=== PATIENT | female | born 1985 | race Caucasian/White ===

== ENCOUNTER 2018-01-29 18:40 | Inpatient (IN) | payer MEDICAID ==
[2018-01-29 19:42] LABS: ABS Basophils 0.1 10^3/ul (0-0.2); ABS Eosinophils 0.1 10^3/ul (0-0.6); ABS Lymphocytes 2.5 10^3/ul (1.0-4.8); ABS Monocytes 0.8 10^3/ul (0-0.8); ABS Neutrophils 5.5 10^3/ul (1.5-7.7); ABS Nucleated RBC 0 10^3/ul; Eosinophil % 1.1 %; Hematocrit 40 % (35-47); Hemoglobin 13.4 g/dl (12.0-16.0); Lymphocyte % 27.7 %; Mean Corpuscular HGB Conc 33 g/dl (31-36); Mean Corpuscular Hemoglobin 29 pg (27-31); Mean Corpuscular Volume 88 fL (80-97); Mean Platelet Volume 7.4 fL (7.4-10.4); Nucleated Red Blood Cells % 0; Platelet Count 280 10^3/ul (150-450); Red Blood Count 4.58 10^6/ul (4.00-5.40); Red Cell Distribution Width 13 % (10.5-15)
[2018-01-29 19:53] LABS: EGFR Non-African American 83.1 (>60)
[2018-01-29] MEDS ORDERED: Mouth Piece, Nicotine* 1 EACH CARTRIDGE INH ONE (20:00)
[2018-01-29 20:19] LABS: Urine Appearance Cloudy; Urine Blood Negative (Negative); Urine Color Yellow; Urine Ketones 1+ (Negative); Urine Protein Negative (Negative); Urine Specific Gravity 1.019 (1.010-1.030); Urine Urobilinogen Negative (Negative)
--- NOTE | 2018-01-29 20:28 | ED ---
Medical Screening - HPI Summary HPI Summary: Patient sent by [facility] to ED with History of bipolar 2 compliant with meds, states rapid cycling episodes of kenya in anger with intermittent thoughts of SI x weeks. Taking lamotrigine 400 mg daily 2 years. Denies change in meds or dosage. Denies increase in use of alcohol, recreational drugs , but states greater impulse torward using them. Denies any fever, cough, sore throat, CP, SOB, N/V/V abdominal pain, change in hearing, change in BM. Medical history is bipolar 2. Denies HI. - History of Current Complaint Chief Complaint: EDMentalHealth Stated Complaint: MHE Time Seen by Provider: 01/29/18 18:59 Onset/Duration: Started Weeks Ago Severity: moderate Associated Signs and Symptoms: Other - Hyperverbal PMH/Surg Hx/FS Hx/Imm Hx Endocrine/Hematology History: Denies: Hx Anticoagulant Therapy Cardiovascular History: Denies: Hx Cardiac Arrest History: Denies: Hx Dialysis Neurological History: Denies: Hx CVA Psychiatric History: Denies: Hx Autism Infectious Disease History: No Infectious Disease History: Denies: Traveled Outside the [place] in Last 30 Days - Family History Known Family History: Positive: Unknown - Social History Alcohol Use: Occasionally Substance Use Type: Reports: Marijuana Smoking Status (MU): Heavy Every Day Tobacco Smoker Review of Systems Constitutional: Negative Eyes: Negative ENT: Negative Cardiovascular: Negative Respiratory: Negative Gastrointestinal: Negative Genitourinary: Negative Musculoskeletal: Negative Skin: Negative Neurological: Negative Positive: Other - hyperverbal, very energetic. All Other Systems Reviewed And Are Negative: Yes Physical Exam - Summary Physical Exam Summary: Hyperverbal, energetic presentation. However verbally coherent. Answers appropriate. Patient seems self-aware and perceptive about her condition. Triage Information Reviewed: Yes Vital Signs On Initial Exam: Initial Vitals Temp Pulse Resp BP Pulse Ox 98.1 F 72 16 126/70 97 01/29/18 18:40 01/29/18 18:40 01/29/18 18:40 01/29/18 18:40 01/29/18 18:40 Vital Signs Reviewed: Yes Appearance: Positive: Well-Appearing Diagnostics - Vital Signs Vital Signs Temp Pulse Resp BP Pulse Ox 01/29/18 18:40 98.1 F 72 16 126/70 97 - Laboratory Lab Results: Lab Results 01/29/18 01/29/1801/29/18 Range/Units 19:04 19:26 19:26 WBC 9.0 (3.5-10.8) 10^3/ul RBC 4.58 (4.00-5.40) 10^6/ul Hgb 13.4 (12.0-16.0) g/dl Hct 40 (35-47) % MCV 88 (80-97) fL MCH 29 (27-31) pg MCHC 33 (31-36) g/dl RDW 13 (10.5-15) % Plt Count 280 (150-450) 10^3/ul MPV 7.4 (7.4-10.4) fL Neut % (Auto) 61.1 % Lymph % (Auto) 27.7 % [place] % (Auto) 9.2 % Eos % (Auto) 1.1 % Baso % (Auto) 0.9 % Absolute Neuts (auto) 5.5 (1.5-7.7) 10^3/ul Absolute Lymphs (auto) 2.5 (1.0-4.8) 10^3/ul Absolute Monos (auto) 0.8 (0-0.8) 10^3/ul Absolute Eos (auto) 0.1 (0-0.6) 10^3/ul Absolute Basos (auto) 0.1 (0-0.2) 10^3/ul Absolute Nucleated RBC 0 10^3/ul Nucleated RBC % 0 Sodium 137 (135-145) mmol/L Potassium 4.0 (3.5-5.0) mmol/L Chloride 101 (101-111) mmol/L Carbon Dioxide 28 (22-32) mmol/L Anion Gap 8 (2-11) mmol/L BUN 10 (6-24) mg/dL Creatinine 0.80 (0.51-0.95) mg/dL Est GFR ( Amer) 100.6 (>60) Est GFR (Non-Af Amer) 83.1 (>60) BUN/Creatinine Ratio 12.5 (8-20) Glucose 91 (70-100) mg/dL Calcium 9.9 (8.6-10.3) mg/dL Total Bilirubin 0.80 (0.2-1.0) mg/dL AST 17 (13-39) U/L ALT 14 (7-52) U/L Alkaline Phosphatase 58 (34-104) U/L Total Protein 7.2 (6.4-8.9) g/dL Albumin 4.6 (3.2-5.2) g/dL Globulin 2.6 (2-4) g/dL Albumin/Globulin Ratio 1.8 (1-3) TSH Pending Urine Color Yellow Urine Appearance Cloudy Urine pH 6.0 (5-9) Ur Specific [place] 1.019 (1.010-1.030) Urine Protein Negative (Negative) Urine Ketones 1+ A (Negative) Urine Blood Negative (Negative) Urine Nitrate Negative (Negative) Urine Bilirubin Negative (Negative) Urine Urobilinogen Negative (Negative) Ur Leukocyte Esterase Negative (Negative) Urine Glucose Negative (Negative) Salicylates Pending Acetaminophen Pending Serum Alcohol Pending Result Diagrams: 01/29/18 19:26 01/29/18 19:26 Lab Statement: Any lab studies that have been ordered have been reviewed, and results considered in the medical decision making process. Course/Dx - Course Course Of Treatment: Patient sent by [facility] to ED with History of bipolar 2 compliant with meds, states rapid cycling episodes of kenya in anger with intermittent thoughts of SI x weeks. Taking lamotrigine 400 mg daily 2 years. Denies change in meds or dosage. Denies increase in use of alcohol, recreational drugs, but states greater impulse torward using them. Denies any fever, cough, sore throat, CP, SOB, N/V/V abdominal pain, change in hearing, change in BM. Medical history is bipolar 2. Denies HI. Physical exam: Hyperverbal, energetic presentation. However verbally coherent. Answers appropriate. Patient seems self-aware and perceptive about her condition. Vital signs within normal limits. Labs unremarkable. Patient has no complaints physically. Pending evaluation by mental health. - Diagnoses Provider Diagnoses: [place] Discharge - Sign-Out/Discharge Documenting (check all that apply): Sign-Out Patient Signing out patient TO: Nick Acosta - Discharge Plan Condition: Stable - Billing Disposition and Condition Condition: STABLE
[2018-01-29] MEDS ORDERED: Ibuprofen TAB* 600 MG PO ONE (21:50)
[2018-01-30] MEDS: Nicotine Inhaler* 10 MG AMP INH PRN ×4 (08:45→21:19)
[2018-01-30] MEDS: Divalproex DR TAB(*) 500 MG PO SCH (21:19)
--- NOTE | 2018-01-31 02:24 | HP ---
HISTORY AND PHYSICAL: DATE OF ADMISSION: 01/29/18 PROVIDER: Shannen Meyer NP in Psychiatry. SUPERVISING PHYSICIAN: Tony Harvey MD.* (DICTATED BY SHANNEN MEYER NP ) JUSTIFICATION FOR ADMISSION: The patient is in need of 24-hour supervision and care secondary to gross disorganization. CHIEF COMPLAINT: I was Yu acted multiple times. I get aggressive now, but on cocaine I never did that. HISTORY OF PRESENT ILLNESS: The patient is a 32-year-old partnered white woman from [place] who has a history of bipolar II disorder who arrives here on a voluntary status after going to her job at [employer] and talking to a nurse practitioner there who sent her up here because she is speaking at an extremely rapid rate, talking about some kind of nonsensical things and being somewhat inappropriate. Estrellita's story is difficult to understand as she jumps from topic to topic and is unable to make it clear what is actually relevant information. She begins her story by saying as a child her mother gave up custody when she was 9 and then retained her and stated that she was inpatient much of her childhood that she weighed 200 pounds as a child that her mother wanted her to be autistic and a variety of other seemingly inconsequential details. She states she got to [place] 3 months ago to be with "her man". She has been using drugs for 3 years. She states that she only uses them for experimentation and that she does not use it very often. She states that cocaine does not make her aggressive but being manic like this does. She further comments that she has never been manic before, not like this and that she thinks that her diagnosis of bipolar II may have crept into the realm of bipolar I instead. She is extremely distractible. She cannot stay on topic. She makes some statements that are oddly specific and grandiose in a way, flight of ideas is present. She is more active doing many things. She is incredibly talkative. She states she is sleeping alright but I am not sure if that is actually the case. PAST PSYCHIATRIC HISTORY: She states she spent much of her childhood in hospitals. She believes her mother had [place] by proxy. She grew up in [place]. She is not currently in treatment here. She feels like Maxine stopped working after a number of years of taking it and that has what has caused this particular jose a rocketing bump in her presentation. Previously, she states she has taken Abilify which was awful. She gained 100 pounds in 4 months according to her. She states she took lithium 5500 mg and that did not help her because she "metabolizes it so rapidly". When I informed her that that was an impossibility, she shrugged her shoulders and that was the end of that conversation. She suggests that she would like to try Symbyax. I deter her from that choice as it causes so much weight gain. She does agree to a mood stabilizer. She will not agree to lithium. She agrees to Depakote 500 b.i.d. We did not get to the weight gain issue and we have not discussed that yet. PAST MEDICAL HISTORY: Impossible to obtain at this time. HISTORY OF SUBSTANCE USE: She states she has been experimenting with drugs for the past 3 years. It is unclear what drugs she has been experimenting with, but she was advised that this is not useful to a person who has a bipolar brain. It was not possible to obtain a family history, but Kishore Denise may have done that. SUBSTANCE ABUSE: She does smoke cigarettes. She does drink alcohol and she has experimented with drugs as I stated before. SOCIAL HISTORY: I am going to leave to Kishore. 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 She is a [employer] stack and she currently works at [employer]. She does say that she "was at university," she does not say which one. REVIEW OF SYMPTOMS: The patient reports feeling very alert. She denies shortness of breath, heat or cold intolerance, chest pain or abdominal pain. She denies neurological symptoms. She denies fevers or changes in weight. PHYSICAL EXAMINATION VITAL SIGNS: On 01/30/18 at 0409 in the morning, temperature was 98.7, pulse 80 , respiratory rate 16, oxygen sat 97, blood pressure 124/73. For further exam data, please see the emergency department records, which reveals an exam within normal limits. LABORATORY DATA: Hematology, chemistry and urine are all within normal limits with the exception that her urine contained ketones. Toxicology screen indicates that she is positive for cocaine and cannabinoids. MENTAL STATUS EXAMINATION: This is a slim, attractive woman wearing large cat eye glasses. She is hyperverbal. She is a little excitable but she is cooperative. Her speech volume is somewhat loud. Her tone is friendly. She is agitated. She has a full range of affect. Her thought processes are racing. Her thought content appears to be free of delusions. She is not homicidal. She does report being impulsive and having occasional suicidal thoughts. She is not having hallucinations, although she reports in the past she has had them. Her insight is fair. Her judgement is poor. She is alert and oriented x3. DIAGNOSES: [place] I: Bipolar I disorder. [place] II: Deferred. [place] III: None. IMPRESSION: Estrellita is a 32-year-old partnered white woman who comes to the hospital after an nurse practitioner at her workplace suggests she needs to get help and additional care following aggressive behavior, impulses to hurt herself and others, as well as confused behavior where she apologizes for what has just transpired. PLAN: The patient is admitted to the Adult Behavioral Health Unit and placed on q. 15 minute checks for her own safety. The patient is encouraged to participate in supportive milieu, individual and group therapies. ESTIMATED LENGTH OF STAY: Five to seven days. When Estrellita's shaw is reduced, we may obtain an MMPI for diagnostic clarification. We will be titrating Depakote among other medications, ensure efficacy and monitor for mood and thought content. DISCHARGE PLANNING: Will include family involvement and outpatient providers. SHANNEN MEYER, [place] [id number]/CPS #: [id number] [place]
[2018-01-31] MEDS ORDERED: Al Hydrox/Mg Hydrox/Simet LIQ* 30 ML UDC PO PRN (02:47)
[2018-01-31] MEDS ORDERED: chlorproMAZINE TAB* 50 MG PO PRN (02:55)
[2018-01-31] MEDS: Divalproex DR TAB(*) 500 MG PO SCH ×2 (09:04→20:02)
[2018-01-31] MEDS: Vitamin THERAPEUTIC TAB PO SCH (09:04)
[2018-01-31] MEDS: Nicotine Inhaler* 10 MG AMP INH PRN ×2 (10:18→18:55)
--- NOTE | 2018-01-31 10:54 | PN ---
Subjective - Subjective Date of Service: 01/31/18 Service Type: 72301 Hosp care 15 min low complexity Subjective: Bandar is doing well. She is somewhat less hyperverbal than she was yesterday but remains distractible and goes on tangents. She does eventually correct herself to say that she is growing aware that she can't stay on topic. She spends quite some time discussing her adventist views of "the Universe" and the spirit she is most familiar with. She has created an altar in her room which she has used creatively to engage in the yazidi she requires. Objective - Appearance Appearance: Healthy Appearing Dysmorphic Features: No Hygiene: Normal Grooming: Well Kept - Behavior Psychomotor Activities: Normal Exhibits Abnormal Movement: No - Attitude and Relatedness Attitude and Relatedness: Well Related Eye Contact: Good - Speech Quality: Pressured Latencies: Normal Quantity: Copious - Mood Patient's Decription of Mood: "Great" - Affect Observed Affect: Expansive Affect Consistent with: Euphoria - Thought Process Patient's Thought Process: Coherent, Tangential Thought Content: No Passive Wish, No Suicidal Planning, No Homicidal Ideation, No Paranoid Ideation - Sensorium Experiencing Hallucinations: No, Sensorium is Clear Type of Hallucinations: Visual: No, Auditory: No, Command: No - Level of Consciousness Level of Consciousness: Agitated Orientation: Yes Intact, Yes Orientated to Time, Yes Orientated to Place, Yes Orientated to Person - Impulse Control Impulse Control: Impaired - Insight and Judgement Insight and Judgement: Fair - Group Participation Particating in Group Activities: Yes - Medication Management Medication Management Adherence: Yes Assessment - Assessment Merits Inpatient Hospitalization: For Immediate Safety Inpatient DSM-V Dx: F31.13 Clinical Impression: Mary is a 32 year old woman who comes to the hospital on the advice of an [employer]OR [employer] coworker. Mary is manic and, although pleasant and interesting, is not in possession of good insight, judgment, or impulse control. She is very energetic and has many creative ideas. Plan - Plan Treatment Plan: Name: BANDAR POLANCO Birthdate: 1985 [id number] Continued Medication Management: Start Medication Medications: Current Medications Acetaminophen (Tylenol Tab*) 650 mg PO Q4H PRN PRN Reason: PAIN/FEVER Al Hydrox/Mg Hydrox/Simethicone (Maalox Plus*) 30 ml PO Q4H PRN PRN Reason: INDIGESTION Chlorpromazine HCl (Thorazine Tab*) 50 mg PO Q6H PRN PRN Reason: AGITATION Divalproex Sodium (Depakote Dr Tab(*)) 500 mg PO BID [facility] Last Admin: 01/31/18 09:04 Dose: 500 mg Multivitamins (Theragran Tab*) 1 tab PO DAILY [facility] Last Admin: 01/31/18 09:04 Dose: 1 tab Nicotine (Nicotine Inhaler*) 10 mg INH Q2H PRN PRN Reason: CRAVING Last Admin: 01/31/18 10:18 Dose: 10 mg Nicotine Polacrilex (Nicotine Gum*) 2 mg PO Q2H PRN PRN Reason: CRAVING - Discharge Plan Discharge Plan: Outpatient Follow Up Outpatient Program: [facility] Additional Comments: Bandar will benefit from starting a mood stabilizer and she has agreed to Depakote. We are starting with 500 mg BID. She will in the future be referred to [facility] for therapy and medication management. We may also consider drug treatment, as she has been "experimenting" for several years and that is not contributing to her stability.
--- NOTE | 2018-01-31 15:52 | PN ---
Subjective - Subjective Date of Service: 01/30/18 Service Type: 07910 Group Psychotherapy Subjective: Bandar was active in the group, sharing her own experiences and validating others'. She participated well, was perhaps over enthusiastic at times, but generally maintained appropriate boundaries. 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 Mary is manic and, although pleasant and interesting, is not in possession of good insight, judgment, or impulse control. She is very energetic and has many creative ideas. Plan - Plan Treatment Plan: Name: BANDAR POLANCO Birthdate: 1985 [id number] Medications: Current Medications Acetaminophen (Tylenol Tab*) 650 mg PO Q4H PRN PRN Reason: PAIN/FEVER Al Hydrox/Mg Hydrox/Simethicone (Maalox Plus*) 30 ml PO Q4H PRN PRN Reason: INDIGESTION Chlorpromazine HCl (Thorazine Tab*) 50 mg PO Q6H PRN PRN Reason: AGITATION Divalproex Sodium (Depakote Dr Tab(*)) 500 mg PO BID [facility] Last Admin: 01/31/18 09:04 Dose: 500 mg Multivitamins (Theragran Tab*) 1 tab PO DAILY [facility] Last Admin: 01/31/18 09:04 Dose: 1 tab Nicotine (Nicotine Inhaler*) 10 mg INH Q2H PRN PRN Reason: CRAVING Last Admin: 01/31/18 10:18 Dose: 10 mg Nicotine Polacrilex (Nicotine Gum*) 2 mg PO Q2H PRN PRN Reason: CRAVING - Discharge Plan Additional Comments: Bandar will benefit from starting a mood stabilizer and she has agreed to Depakote. We are starting with 500 mg BID. She will in the future be referred to [facility] for therapy and medication management. We may also consider drug treatment, as she has been "experimenting" for several years and that is not contributing to her stability.
[2018-02-01] MEDS: Acetaminophen TAB* 325 MG PO PRN (07:58)
[2018-02-01] MEDS: Divalproex DR TAB(*) 500 MG PO SCH ×2 (07:59→21:23)
[2018-02-01] MEDS: Nicotine Inhaler* 10 MG AMP INH PRN ×2 (07:59→21:23)
[2018-02-01] MEDS: Vitamin THERAPEUTIC TAB PO SCH (07:59)
--- NOTE | 2018-02-01 12:40 | PN ---
Subjective - Subjective Date of Service: 02/01/18 Service Type: [id number] Hosp care 25 min moderate complexity Subjective: Bandar is still hyperverbal, but she is noticing it more and thus editing herself more. She is suffering with otitis media and has been treated with amoxicillin 500 mg QID x 7 days. She may use IBU or APAP for pain relief. April created "a community table" in the milieu so that about 12 people could sit together. She also allowed that others might not want to join, so she left other tables alone. This is consistent with her desire to not force things on people. Assessment - Assessment Inpatient DSM-V Dx: F31.13 Clinical Impression: Mary is a 32 year old woman who comes to the hospital on the advice of an [employer] coworker. Mary is manic and, although pleasant and interesting, is not in possession of good insight, judgment, or impulse control. She is very energetic and has many creative ideas. Plan - Plan Treatment Plan: Name: BANDAR POLANCO Birthdate: 1985 [id number] Medications: Current Medications Acetaminophen (Tylenol Tab*) 650 mg PO Q4H PRN PRN Reason: PAIN/FEVER Last Admin: 02/01/18 07:58 Dose: 650 mg Al Hydrox/Mg Hydrox/Simethicone (Maalox Plus*) 30 ml PO Q4H PRN PRN Reason: INDIGESTION Amoxicillin (Amoxicillin Po (*)) 500 mg PO 0900,1300,1700,2100 [facility] Chlorpromazine HCl (Thorazine Tab*) 50 mg PO Q6H PRN PRN Reason: AGITATION Divalproex Sodium (Depakote Dr Tab(*)) 500 mg PO BID [facility] Last Admin: 02/01/18 07:59 Dose: 500 mg Ibuprofen (Motrin Tab*) 400 mg PO Q6H PRN PRN Reason: PAIN Multivitamins (Theragran Tab*) 1 tab PO DAILY [facility] Last Admin: 02/01/18 07:59 Dose: 1 tab Nicotine (Nicotine Inhaler*) 10 mg INH Q2H PRN PRN Reason: CRAVING Last Admin: 02/01/18 07:59 Dose: 10 mg Nicotine Polacrilex (Nicotine Gum*) 2 mg PO Q2H PRN PRN Reason: CRAVING - Discharge Plan Additional Comments: Bandar will benefit from starting a mood stabilizer and she has agreed to Depakote. We are starting with 500 mg BID. She will in the future be referred to [facility] for therapy and medication management. We may also consider drug treatment, as she has been "experimenting" for several years and that is not contributing to her stability.
[2018-02-01] MEDS: Amoxicillin PO (*) 500 MG CAP PO SCH ×3 (12:51→21:23)
[2018-02-02] MEDS: Vitamin THERAPEUTIC TAB PO SCH (08:29)
[2018-02-02] MEDS: Amoxicillin PO (*) 500 MG CAP PO SCH ×4 (08:29→20:48)
[2018-02-02] MEDS: Divalproex DR TAB(*) 500 MG PO SCH ×2 (08:29→20:48)
[2018-02-02] MEDS: Nicotine GUM* 2 MG PO PRN (08:30)
[2018-02-02] MEDS: Nicotine Inhaler* 10 MG AMP INH PRN ×2 (08:30→13:54)
[2018-02-02] MEDS: Acetaminophen TAB* 325 MG PO PRN ×3 (08:31→17:17)
[2018-02-02] MEDS: Ibuprofen TAB* 400 MG PO PRN (19:43)
[2018-02-03] MEDS: Ibuprofen TAB* 400 MG PO PRN ×3 (02:20→13:04)
[2018-02-03] MEDS: Amoxicillin PO (*) 500 MG CAP PO SCH ×3 (08:11→16:30)
[2018-02-03] MEDS: Vitamin THERAPEUTIC TAB PO SCH (08:11)
[2018-02-03] MEDS: Nicotine Inhaler* 10 MG AMP INH PRN ×3 (08:12→18:05)
[2018-02-03] MEDS: Divalproex DR TAB(*) 500 MG PO SCH ×2 (08:12→21:28)
[2018-02-03] MEDS: Nicotine GUM* 2 MG PO PRN (08:13)
--- NOTE | 2018-02-03 16:45 | PN ---
Subjective - Subjective Date of Service: 02/03/18 Subjective: Found Bandar in the milieu, conversing with peers and playing Bingo. She was agreeable to an interview. She is reporting that she is improving on the Depakote and has not complaints of any side effects. She wants to relay to her provider that 1) She continues to have mild mood swings and that she feels that she may need an increase in the Depakote, she complains of a two hard spots superior and anterior to Left ear. Reports that it is very painful and this is coupled with a complaint about a staff member who took her temperature and was "rough" when he did so. She wants to report that she felt diminished by her complaints that he applied too much pressure when he took her temperature. She reports sleeping well, no suicidal ideation and that she is feeling "pretty good " after a visit today with her boyfriend. Objective - Appearance Appearance: Healthy Appearing Dysmorphic Features: Yes Hygiene: Normal Grooming: Well Kept - Behavior Psychomotor Activities: Normal Exhibits Abnormal Movement: No - Attitude and Relatedness Attitude and Relatedness: Appropriate - Speech Quality: Unpressured Latencies: Long Quantity: Copious - Mood Patient's Decription of Mood: "Good" - Affect Observed Affect: Euphoric - Thought Process Patient's Thought Process: Coherent Thought Content: No Passive Wish, No Suicidal Planning, No Homicidal Ideation, No Paranoid Ideation - Sensorium Experiencing Hallucinations: No, Sensorium is Clear Type of Hallucinations: Visual: No, Auditory: No, Command: No - Level of Consciousness Level of Consciousness: Alert Orientation: Yes Intact, Yes Orientated to Time, Yes Orientated to Place, Yes Orientated to Person - Impulse Control Impulse Control: Intact - Insight and Judgement Insight and Judgement: Fair - Group Participation Particating in Group Activities: Yes Assessment - Assessment Inpatient DSM-V Dx: F31.13 Clinical Impression: Bandar is reporting an improvement on Depakote. States that her speech has improved, reports that peers have told her that she seems to be improving. She complains of ear pain from an infection and including two hard spots below and behind her left ear. She is attending groups, conversant today mild to moderately hyperverbal during interview. She had a euthymic mood and affect, is hoping to be discharged with mental health services stating this is why she moved here from [place] because [facility] has better health coverage. Plan - Plan Treatment Plan: Name: BANDAR POLANCO Birthdate: 1985 [id number] Medications: Current Medications Acetaminophen (Tylenol Tab*) 650 mg PO Q4H PRN PRN Reason: PAIN/FEVER Last Admin: 02/02/18 17:17 Dose: 650 mg Al Hydrox/Mg Hydrox/Simethicone (Maalox Plus*) 30 ml PO Q4H PRN PRN Reason: INDIGESTION Amoxicillin (Amoxicillin Po (*)) 500 mg PO 0900,1300,1700,2100 [facility] Last Admin: 02/03/18 13:04 Dose: 500 mg Chlorpromazine HCl (Thorazine Tab*) 50 mg PO Q6H PRN PRN Reason: AGITATION Divalproex Sodium (Depakote Dr Tab(*)) 500 mg PO BID [facility] Last Admin: 02/03/18 08:12 Dose: 500 mg Ibuprofen (Motrin Tab*) 400 mg PO Q6H PRN PRN Reason: PAIN Last Admin: 02/03/18 13:04 Dose: 400 mg Multivitamins (Theragran Tab*) 1 tab PO DAILY [facility] Last Admin: 02/03/18 08:11 Dose: 1 tab Nicotine (Nicotine Inhaler*) 10 mg INH Q2H PRN PRN Reason: CRAVING Last Admin: 02/03/18 13:04 Dose: 10 mg Nicotine Polacrilex (Nicotine Gum*) 2 mg PO Q2H PRN PRN Reason: CRAVING Last Admin: 02/03/18 08:13 Dose: 2 mg
[2018-02-03 20:25] LABS: ABS Basophils 0 10^3/ul (0-0.2); ABS Eosinophils 0.1 10^3/ul (0-0.6); ABS Lymphocytes 2.1 10^3/ul (1.0-4.8); ABS Monocytes 1.4 10^3/ul (0-0.8); ABS Neutrophils 7.4 10^3/ul (1.5-7.7); ABS Nucleated RBC 0 10^3/ul; Eosinophil % 0.6 %; Hematocrit 41 % (35-47); Hemoglobin 13.6 g/dl (12.0-16.0); Lymphocyte % 18.7 %; Mean Corpuscular HGB Conc 33 g/dl (31-36); Mean Corpuscular Hemoglobin 29 pg (27-31); Mean Corpuscular Volume 88 fL (80-97); Mean Platelet Volume 7.9 fL (7.4-10.4); Nucleated Red Blood Cells % 0; Platelet Count 251 10^3/ul (150-450); Red Blood Count 4.69 10^6/ul (4.00-5.40); Red Cell Distribution Width 13 % (10.5-15)
[2018-02-03] MEDS: Ciproflox/Dexameth OTIC.SUSP* 7.5 ML BTL LEFT EAR SCH (21:26)
[2018-02-03] MEDS: Amoxicillin/Clavulanate TAB* 875 MG PO SCH (21:26)
[2018-02-03 22:02] LABS: INR 0.95 (0.77-1.02)
--- NOTE | 2018-02-04 05:04 | CONS ---
CC: Dr. Grisel Peters; Dr. Ramirez * CONSULTATION REPORT: DATE OF CONSULT: 02/03/18. PRIMARY CARE PROVIDER: Dr. Grisel Peters. MY ATTENDING PHYSICIAN WHILE IN THE HOSPITAL: Dr. Wilma Dumas (report dictated by Mukesh Aguilera NP). REQUESTING PHYSICIAN IN CONSULT: Dr. Ramirez. REASON FOR MEDICAL CONSULTATION: Evaluation of left ear pain. HISTORY OF PRESENT ILLNESS: Mrs. Zarate is a 32-year-old female patient who presented to the [facility] on the with a manic episode. She was noted to be aggressive. She was found by her nurse practitioner at her job to be speaking extremely rapidly, talking about nonsensical things and somewhat inappropriate. She again was noted to be very manic. She was admitted for stabilization. While here was noted that over the last several days, she has had ear pain, it was sudden in both ears but now it has localized, particularly to the left ear and also it is noted that she has been having some nodules felt in the preauricular space and postauricular space and along the neck as well. She says it felt tender and it has gotten worse after the nursing staff here had taken the patient's temperature. She said that they could get temporally and since then she has been feeling worse. She states that her hearing feels muffled in her left ear. She has not noticed any drainage or discharge as she states that it is just becoming painful and she was concerned because the swelling was not getting any better. She had been on amoxicillin, which was ordered on the . She states that it initially started helping but it has not helped her since. There was concern because the swelling just was not getting any better, so we were asked to evaluate in consult. She denies again any hearing loss, she denies having any difficulty with swallowing. No sore throat. She denied having any cough. No shortness of breath and denies having any chest pain. PAST MEDICAL HISTORY: Significant for bipolar. PAST SURGICAL HISTORY: Denies. MEDICATIONS: Current medications include: 1. Tylenol 650 mg every 4 hours as needed. 2. Maalox Plus 30 cc every 4 hours as needed. 3. Amoxicillin 1000 four times a day. 4. Thorazine 50 mg every 6 hours as needed. 5. Depakote 500 mg p.o. b.i.d. 6. Ibuprofen 400 mg every 6 hours. 7. Multivitamin 1 tablet daily. 8. Nicotine inhaler 10 mg inhaled every 2 hours as needed. 9. Nicotine gum 2 mg chew every 2 hours as needed. ALLERGIES TO MEDICATIONS: Include: 1. HALDOL. 2. CODEINE. 3. LATEX. FAMILY HISTORY: Her mother had breast cancer. Father had a history of non- Hodgkin's lymphoma. SOCIAL HISTORY: She is a smoker daily. She does have a history of cocaine use. She also does drink alcohol occasionally. Surrogate decision maker is her partner. REVIEW OF SYSTEMS: There is no documented fever. She denied having any significant weight change. There is no double vision. She denies having any ear discharge. There was no rhinorrhea. No sore throat, no thyroid enlargement. She denied having any chest pain. There is no orthopnea. There is no nocturnal dyspnea. She denies having any abdominal pain. There is no nausea. There is no vomiting, no dysuria, no frequency. There was no seizure, no loss of consciousness, no pruritus and no skin ulcerations. Review of 14 systems completed, all others negative. PHYSICAL EXAM: Vital Signs: Blood pressure 120/59, pulse 82, respirations 16, O2 sat of 100%, temperature 98.4. General: At this time, Ms. Zaarte is a 32- year-old female patient. She is sitting in the PACU bed. She does not appear to be in any acute distress. HEENT: Head atraumatic and normocephalic. Eyes: EOMs are intact. Sclerae anicteric and not pale. Neck was supple. Throat: Oral mucosa appears to be moist. No oropharyngeal erythema. Ears: On the right ear, there was no pain or tenderness along the tragus. Canal appeared to be patent. There was no erythema. Her TM was pearly radford. On the left ear, she does have tenderness along the tragus. She has pre and postauricular adenopathy and along the deep cervical chain, there was slight adenopathy compared to the right side. She does have narrowing of the canal. There is erythema. In addition to this, the drum does appear to be retracted and erythema as well around the drum. Heart: Sounds S1, S2. She had a regular rate and rhythm. No murmurs, rubs, or gallops. Lungs: Clear to auscultation bilaterally. No wheezes, rales, or rhonchi. Abdomen: Soft, flat, nontender. Bowel sounds were present. Extremities: Pulses were 2+ throughout. She was moving all 4 extremities with 5/5 strength. Neurologically, she is awake, she is alert, she is oriented x3. Tongue is midline. Net Mobile Developer were equal. She had no gross focal deficits. Skin: She does have old bruising noted to her thighs, particularly on her left thigh. The patient was concerned with this. DIAGNOSTIC STUDIES/LAB DATA: These are preop labs: WBC of 9, RBC of 4.58, hemoglobin 13.4, hematocrit of 40, platelet count of 280. Sodium 137, potassium 4, chloride of 101, bicarb 28. BUN 10, creatinine 0.80. Glucose 91. Total bilirubin 0.8. AST 17, ALT 14, alk phos 58. TSH 1.34. Urine was obtained and was negative. Toxicology was positive for cannabis and cocaine. Old medical records were reviewed. ASSESSMENT AND PLAN: Mrs. Zarate is a 32-year-old female patient coming into the [facility] for a manic episode. An evaluation here does note that she appeared to have an ear infection and we were asked to evaluate and consult. Recommendation at this point are: 1. Bipolar disorder with an episode of shaw. Defer the management to Dr. Ramirez and psychiatric team. 2. Otitis media with otitis externa. At this point, she is tender in her left ear, more so than the right. The right almost appears to be healed. She has been on amoxicillin for 2 days, so I am going to escalate her therapy to Augmentin 875 mg p.o. b.i.d. In addition to this, I will also add on Ciprodex as well to help with the swelling and the pain and the erythema in the external canal and we will continue to follow her closely. If it persists _ low threshold for an ENT consult. I will check her CBC, CMP, and INR and we will follow her. 3. Skin. She does have old bruising noted. 4. Ecchymosis. Again, these appear to be old healing bruising. I will check her INR, her platelet therapy was stable. Again, this is probably secondary to trauma. We will monitor. 5. DVT prophylaxis. Defer to the primary team. 6. Fluids, electrolytes, and nutrition. She can have a regular diet. 7. Code status. Full code. TIME SPENT: Time spent on consult was 60 minutes, greater than half that time was spent [id number] with the patient obtaining my history and physical, other half time was spent going over plan of care with the patient, implementing the plan of care. I did discuss the plan my attending, Dr. Dumas; she is in agreement. MUKESH AGUILERA, [place] [id number]/CPS #: [id number] MTDRainer
[2018-02-04] MEDS: Amoxicillin/Clavulanate TAB* 875 MG PO SCH ×2 (07:34→21:28)
[2018-02-04] MEDS: Vitamin THERAPEUTIC TAB PO SCH (07:34)
[2018-02-04] MEDS: Ciproflox/Dexameth OTIC.SUSP* 7.5 ML BTL LEFT EAR SCH ×2 (07:34→22:50)
[2018-02-04] MEDS: Divalproex DR TAB(*) 500 MG PO SCH ×2 (07:34→21:28)
[2018-02-04] MEDS: Ibuprofen TAB* 400 MG PO PRN ×2 (07:36→14:45)
[2018-02-04] MEDS: Nicotine Inhaler* 10 MG AMP INH PRN ×4 (08:02→21:28)
--- NOTE | 2018-02-04 11:48 | PN ---
[facility]: Group Therapy Note - Service Type Service Type: 76900 Group Psychotherapy - Cognitive Behavioral Group Therapy ( CBT):Patient was attentive and participatory in CBT programming this morning, and remained in good behavioral control. Patient expressed positive insights regarding relevant treatment interventions and goals.
--- NOTE | 2018-02-04 16:20 | PN ---
Subjective - Subjective Date of Service: 02/04/18 Service Type: 18025 Hosp care 25 min moderate complexity Subjective: Bandar is significantly less manic today. Her speech is of a normal rate and volume, although she feels pressured from within to talk more quickly and change topics. She has increased insight into this phenomenon. She is encouraged to read more about bipolar disorder so that she can recognize symptoms more readily. Objective - Appearance Appearance: Healthy Appearing, Thin Framed Dysmorphic Features: No Hygiene: Normal Grooming: Well Kept - Behavior Psychomotor Activities: Normal Exhibits Abnormal Movement: No - Attitude and Relatedness Attitude and Relatedness: Well Related Eye Contact: Good - Speech Quality: Unpressured Latencies: Normal Quantity: Copious - Mood Patient's Decription of Mood: "Good" - Affect Observed Affect: Good Affect Consistent with: Euthymia - Thought Process Patient's Thought Process: Coherent, Goal Directed Thought Content: No Passive Wish, No Suicidal Planning, No Homicidal Ideation, No Paranoid Ideation - Sensorium Experiencing Hallucinations: No, Sensorium is Clear Type of Hallucinations: Visual: No, Auditory: No, Command: No - Level of Consciousness Level of Consciousness: Alert Orientation: Yes Intact, Yes Orientated to Time, Yes Orientated to Place, Yes Orientated to Person - Impulse Control Impulse Control: Tenuous - Insight and Judgement Insight and Judgement: Good - Group Participation Particating in Group Activities: Yes - Medication Management Medication Management Adherence: Yes Assessment - Assessment Inpatient DSM-V Dx: F31.13 Clinical Impression: Bandar is reporting an improvement on Depakote. States that her speech has improved, reports that peers have told her that she seems to be improving. She complains of ear pain from an infection and including two hard spots below and behind her left ear. She is attending groups, conversant today mild to moderately hyperverbal during interview. She had a euthymic mood and affect, is hoping to be discharged with mental health services stating this is why she moved here from [place] because [facility] has better health coverage. Plan - Plan Treatment Plan: Name: BANDAR POLANCO Birthdate: 1985 [id number] Continued Medication Management: Start Medication Medications: Current Medications Acetaminophen (Tylenol Tab*) 650 mg PO Q4H PRN PRN Reason: PAIN/FEVER Last Admin: 02/02/18 17:17 Dose: 650 mg Al Hydrox/Mg Hydrox/Simethicone (Maalox Plus*) 30 ml PO Q4H PRN PRN Reason: INDIGESTION Amoxicillin/Clavulanate Potassium (Augmentin Tab*) 875 mg PO BID [facility] Last Admin: 02/04/18 07:34 Dose: 875 mg Chlorpromazine HCl (Thorazine Tab*) 50 mg PO Q6H PRN PRN Reason: AGITATION Ciprofloxacin/Dexamethasone (Ciprodex Otic.Susp*) 4 drop LEFT EAR BID [facility] Last Admin: 02/04/18 07:34 Dose: 4 drp Divalproex Sodium (Depakote Dr Tab(*)) 500 mg PO BID [facility] Last Admin: 02/04/18 07:34 Dose: 500 mg Ibuprofen (Motrin Tab*) 400 mg PO Q6H PRN PRN Reason: PAIN Last Admin: 02/04/18 14:45 Dose: 400 mg Multivitamins (Theragran Tab*) 1 tab PO DAILY [facility] Last Admin: 02/04/18 07:34 Dose: 1 tab Nicotine (Nicotine Inhaler*) 10 mg INH Q2H PRN PRN Reason: CRAVING Last Admin: 02/04/18 14:45 Dose: 10 mg Nicotine Polacrilex (Nicotine Gum*) 2 mg PO Q2H PRN PRN Reason: CRAVING Last Admin: 02/03/18 08:13 Dose: 2 mg - Discharge Plan Discharge Plan: Outpatient Follow Up Outpatient Program: [facility] Additional Comments: Bandar will benefit from starting a mood stabilizer and she has agreed to Depakote. We are starting with 500 mg BID. She will in the future be referred to [facility] for therapy and medication management. We may also consider drug treatment, as she has been "experimenting" for several years and that is not contributing to her stability. 02/04/18: Bandar statees some of the drug experimentation may be due to her manic symptoms. She is prepared to be discharged home tomorrow and to accept some time out of work to get her needs met before she returns to work.
--- NOTE | 2018-02-04 19:31 | PN ---
Subjective Date of Service: 02/04/18 Interval History: Patient seen and examined at bedside. Denies fever, chills, sore throat, shortness of breath, chest discomfort, N/V/D. She reports feeling like she had a fever and chills last night. She reports feeling like her left ear is full of fluid and would like something to clear her ear out. Family History: Unchanged from Admission Social History: Unchanged from Admission Past Medical History: Unchanged from Admission Objective Active Medications: Acetaminophen (Tylenol Tab*) 650 mg PO Q4H PRN Reason: PAIN/FEVER Al Hydrox/Mg Hydrox/Simethicone (Maalox Plus*) 30 ml PO Q4H PRN Reason: INDIGESTION Amoxicillin/Clavulanate Potassium (Augmentin Tab*) 875 mg PO BID [facility] Chlorpromazine HCl (Thorazine Tab*) 50 mg PO Q6H PRN Reason: AGITATION Ciprofloxacin/Dexamethasone (Ciprodex Otic.Susp*) 4 drop LEFT EAR BID [facility] Divalproex Sodium (Depakote Dr Tab(*)) 500 mg PO BID [facility] Ibuprofen (Motrin Tab*) 400 mg PO Q6H PRN Reason: PAIN Multivitamins (Theragran Tab*) 1 tab PO DAILY [facility] Nicotine (Nicotine Inhaler*) 10 mg INH Q2H PRN Reason: CRAVING Nicotine Polacrilex (Nicotine Gum*) 2 mg PO Q2H PRN Reason: CRAVING Vital Signs - 8 hr 02/04/18 15:26 Respiratory 16 Rate Oxygen Devices in Use Now: None Appearance: NAD, sitting up in bed Ears/Nose/Mouth/Throat: Mucous Membranes Moist, - - Left ear canal narrowed and inflammed, mild erythema. Unable to fully visualize the TM due to canal narrowing. Right TM pearly radford. Respiratory: Symmetrical Chest Expansion and Respiratory Effort, Clear to Auscultation Cardiovascular: NL Sounds; No Murmurs; No JVD, RRR Lymphatic: - - Pre and postauricular adenopathy and posterior cervical chain adenopathy on the left. Skin: No Rash or Ulcers Neurological: Alert and Oriented x 3, NL Muscle Strength and Tone Nutrition: Taking PO's Result Diagrams: 02/03/18 19:57 02/03/18 19:56 Additional Lab and Data: Assess/Plan/Problems-Billing Assessment: Ms. Zarate is a 32 yo female with PMH significant for Bipolar disorder who is a patient on [facility] for a manic episode. Asked to consult for an ear infection. - Patient Problems (1) Otitis externa Code(s): H60.90 - UNSPECIFIED OTITIS EXTERNA, UNSPECIFIED EAR SNOMED Code(s): 0270230 Comment: - Discomfort is improving - Afebrile and mild leukocytosis - Continue Ciprodex for 7 day course (2) Otitis media Code(s): H66.90 - OTITIS MEDIA, UNSPECIFIED, UNSPECIFIED EAR SNOMED Code(s): 64784715 Comment: - Discomfort is improving - Afebrile and mild leukocytosis - Continue Augmentin for 7 day course (3) Bipolar 1 disorder Code(s): F31.9 - BIPOLAR DISORDER, UNSPECIFIED SNOMED Code(s): 540230663 Comment: - Management per Psychiatry (4) DVT prophylaxis Code(s): MCE9963 - SNOMED Code(s): 339745937 Comment: - Ambulate (5) Full code status Code(s): Z78.9 - OTHER SPECIFIED HEALTH STATUS SNOMED Code(s): 606498994 Status and Disposition: Inpatient. Disposition per Psychiatry. Will need to follow up with Dr. Peters ( PCP) at discharge. Thank you for this consultation. Attending: Salazar Meza
[2018-02-05] MEDS: Amoxicillin/Clavulanate TAB* 875 MG PO SCH (08:58)
[2018-02-05] MEDS: Vitamin THERAPEUTIC TAB PO SCH (08:58)
[2018-02-05] MEDS: Divalproex DR TAB(*) 500 MG PO SCH (08:59)
[2018-02-05] MEDS: Ibuprofen TAB* 400 MG PO PRN (08:59)
[2018-02-05] MEDS: Nicotine Inhaler* 10 MG AMP INH PRN ×2 (08:59→13:03)
[2018-02-05] MEDS: Ciproflox/Dexameth OTIC.SUSP* 7.5 ML BTL LEFT EAR SCH (09:00)
[2018-02-05 09:44] VITALS: BP 136/83
--- NOTE | 2018-02-05 21:43 | DS ---
CC: Dr. Peters; [facility]; [facility] * DISCHARGE SUMMARY: DATE OF ADMISSION: 01/29/18 DATE OF DISCHARGE: 02/05/18 PROVIDER: Shannen Meyer NP, in Psychiatry. SUPERVISING PHYSICIAN: Dr. Tony Harvey.* (DICTATED BY SHANNEN MEYER NP ) DIAGNOSES: [place] I: Bipolar 1 disorder. [place] II: Deferred. CONDITION AT THE TIME OF DISCHARGE: Improved, psychiatrically cleared, stable. Estrellita participated in groups and was social with peers. Her boyfriend was agreeable to discharge as was Estrellita. She has done well here psychiatrically. She tolerated new meds, which included amoxicillin, Depakote, Ativan, and Benadryl well. She will be attending [facility]. MENTAL STATUS EXAM: At the time of discharge, the patient is excited, cooperative, and makes good eye contact. She is alert and oriented x3. Her grooming is excellent. Her speech pace is normal. Her thought processes are logical. She is not psychotic or delusional. She denies AH, VH, SI, and HI. Her insight is fair, her judgment is fair. She is willing to follow up and she is urged to see a therapist. DISCHARGE INSTRUCTIONS TO THE PATIENT: A. Medications: 1. Amoxicillin/clavulanate, otherwise known as Augmentin 875 b.i.d., dispensed 10 for 5 days. This is for inner and outer ear infection. 2. Ciprodex ear drops 4 drops in left ear twice a day, dispensed 1 bottle. 3. Depakote 500 mg twice a day, dispensed 60. 4. Nicotine gum 2 mg q.2 hours, dispensed 100 pieces of gum. B. Diet is regular. C. Activities: As tolerated. Estrellita is a smoker. She has declined a referral to the [facility] Smokers Quitline at this time. If she decides to access the free service in the future, she can contact the Quitline at 284- [phone]. D. Followup care: She has appointments at [facility] on 02/12 at 9:45. She can see the [facility] on 02/06/[address] Grisel Peters is also her primary care provider and she can be seen on 12/13/18. E. Substance abuse followup: She is referred to the [facility] [place]. HOSPITAL COURSE: A. Chief complaint: "I was Yu acted multiple times. I get aggressive now, but on cocaine I never did that." The patient is a 32-year- old partnered white woman from [place] who has a history of bipolar 2 disorder who arrives here on a voluntary status after going to her job at [employer] and talking to a nurse practitioner there who sent her up here because she is speaking at an extremely rapid rate, talking about some kinds of nonsensical things and being somewhat inappropriate. Estrellita's story is difficult to understand as she jumps from topic to topic and is unable to make it clear what is actually relevant information. She begins her story by saying that as a child her mother gave up custody when she was 9 and then retained her and stated that she was inpatient much of her childhood that she weighed 200 pounds as a child that her mother wanted her to be autistic and a variety of other seemingly inconsequential details. She states she got to [place] 3 months ago to be with "her man". She has been using drugs for 3 years. She states that she only uses them for experimentation and that she does not use them very often. She states that cocaine does not make her aggressive but being manic like this does. She further comments that she has never been manic before, not like this and that she thinks that her diagnosis of bipolar 2 may have crept into the realm of bipolar 1 instead. She is extremely distractible. She cannot stay on topic. She makes some statements that are oddly specific and grandiose in a way, flight of ideas is present. She is more active doing many things. She is incredibly talkative. She states she is sleeping alright but I am not sure if that is actually the case. Part B. Psychiatric treatment was rendered. Estrellita was admitted to the adult behavioral unit and placed on 15-minute checks for safety. She soon earned the privileges of 30-minute checks and staff pass. Estrellita did well on the unit and went to groups. She interacted with peers well. Her peers found her interesting and irritating because she was hyperverbal, eventually this started to decline. She did develop insight into this phenomenon and determined that she does not like being manic and in fact it is disruptive and uncomfortable for her. She tolerated the addition of Depakote quite well. She likes it. She feels like it makes her feel better. She even lobbied for an increased dose of Depakote which I resisted as her level was already 71 and I suspect it will drift higher. I did not meet with her family but her boyfriend was agreeable to her coming home. Actually, a fire alarm dispatcher consult was entered, but when a fire alarm dispatcher came to see her, she was too manic. She had already created an alter of a blanket, a bar of soap and 2 yellow hospital shocks. The fire alarm dispatcher believed it was better to come back at a later time. She is significantly improved. She notices this herself. She feels as though her relationships will be improved and she wants time to feel better and so she is taking a few extra days of time to herself after this. SHANNEN MEYER, [place] [id number]/CPS #: [id number] [place]
== END 2018-02-05 14:45 | disposition home or self-care (01) | DRG 753 ==
LOC: ED 18:40 → BSU 22:15
PROVIDERS: ADMIT Psychiatry & Neurology Psychiatry; ATTEND Psychiatry & Neurology Psychiatry
DX: F31.13 Bipolar disorder, current episode manic without psychotic features, severe (principal); R45.851 Suicidal ideations; F17.210 Nicotine dependence, cigarettes, uncomplicated; H60.93 Unspecified otitis externa, bilateral; H66.93 Otitis media, unspecified, bilateral; F14.90 Cocaine use, unspecified, uncomplicated; Z88.5 Allergy status to narcotic agent; Z88.8 Allergy status to other drugs, medicaments and biological substances; Z91.040 Latex allergy status; Z80.3 Family history of malignant neoplasm of breast; Z80.7 Family history of other malignant neoplasms of lymphoid, hematopoietic and related tissues
CPT/HCPCS: 36415; 80053; 80164; 80307; 80320; 80329; 81003; 84443; 85025; 85610; 86140; 90853; 99222; 99231; 99232; 99284; A9270-GY; G0480